=== PATIENT | female | born 1965 | race Caucasian/White ===

== ENCOUNTER 2016-06-18 19:31 | Emergency (ER) | payer SELFPAY ==
[~2016-06-18] VITALS: Ht 162.5 cm; Wt 95.3 kg
[~2016-06-18 19:31] MED LIST: IBUPROFEN400 MG PO; MOTRIN; MOTRIN800 MG PO; NKHM; PREDNICOT20 MG PO; VIBRAMYCIN100 MG PO
[2016-06-18] MEDS ORDERED: '''ZYRTEC PO (19:37)
[2016-06-18] MEDS ORDERED: CYCLOBENZAPRINE10 MG PO (19:37)
[2016-06-18] MEDS ORDERED: COREG12.5 M1 PO (19:37)
[2016-06-18] MEDS ORDERED: IBU800 M1 PO (19:37)
[2016-06-18] MEDS ORDERED: OMEPRAZOLE40 MG PO (19:38)
[2016-06-18] MEDS ORDERED: HYDROXYZINE HCL25 M1 PO (19:38)
[2016-06-18] MEDS ORDERED: TRAMADOL HCL50 MG PO (19:38)
[2016-06-18 20:48] LABS: BILIRUBIN NEGATIVE (NEGATIVE); BLOOD 1+ (NEGATIVE); CLARITY CLEAR (CLEAR); COLOR YELLOW (YELLOW); GLUCOSE TRACE (NEGATIVE); KETONE 1+ (NEGATIVE); LEUKO ESTERASE NEGATIVE (NEGATIVE); NITRITE NEGATIVE (NEGATIVE); PH 6.5 (5.0-9.0); PROTEIN NEGATIVE (NEGATIVE)
[2016-06-18 20:57] LABS: ALKALINE PHOSPHATASE 120 U/L (45-117); BILIRUBIN, TOTAL 0.3 mg/dl (0.2-1.0); BUN 8 mg/dl (7-24); CARBON DIOXIDE 29 mmol/L (21-32); CHLORIDE 104 mmol/L (98-107); EST GLOM FILT AFRICAN AMERICAN > 60 ml/min; GLUCOSE 133 mg/dL (65-99); POTASSIUM 3.2 mmol/L (3.5-5.1); SGOT/AST 33 IU/L (3-35); SGPT/ALT 57 U/L (12-78); SODIUM 142 mmol/L (136-145); TOTAL PROTEIN 7.2 gm/dL (6.4-8.2)
[2016-06-18 21:18] LABS: BACTERIA TRACE; URINE REFLEX COMMENT YES (NO)
[2016-06-18] MEDS ORDERED: MEDROL DOSEPAK4 MG PO (21:37)
[2016-06-18] MEDS ORDERED: AUGMENTIN 875875 MG PO (21:37)
[2016-06-18] MEDS ORDERED: PROAIR HFA8.5 GM INH (21:37)
== END 2016-06-18 21:56 | disposition home or self-care (01) ==
LOC: ED 19:31
PROVIDERS: Nurse Practitioner Family
DX: J40 Bronchitis, not specified as acute or chronic (principal); H66.92 Otitis media, unspecified, left ear; F17.200 Nicotine dependence, unspecified, uncomplicated

== ENCOUNTER → 2016-11-26 | Outpatient (CLI) | payer MEDICAID ==
[~2016-11-26] MED LIST changes: +'''ZYRTEC PO; +AUGMENTIN 875875 MG PO; +COREG12.5 M1 PO; +CYCLOBENZAPRINE10 MG PO; +HYDROXYZINE HCL25 M1 PO; +IBU800 M1 PO; +MEDROL DOSEPAK4 MG PO; +OMEPRAZOLE40 MG PO; +PROAIR HFA8.5 GM INH; +TRAMADOL HCL50 MG PO
== END | disposition home or self-care (01) ==
LOC: ORTHO 01:49
DX: S83.011A Lateral subluxation of right patella, initial encounter (principal); M17.0 Bilateral primary osteoarthritis of knee; M21.161 Varus deformity, not elsewhere classified, right knee; M25.361 Other instability, right knee; X58.XXXA Exposure to other specified factors, initial encounter; Y93.89 Activity, other specified; Y92.89 Other specified places as the place of occurrence of the external cause; Y99.8 Other external cause status

== ENCOUNTER → 2016-12-28 | Outpatient (CLI) | payer OTHER | END | disposition home or self-care (01) | LOC: ORTHO 02:17 | DX: M16.11 Unilateral primary osteoarthritis, right hip (principal) ==

== ENCOUNTER → 2017-02-01 | Outpatient (CLI) | payer OTHER | END | disposition home or self-care (01) | LOC: CT 14:48 | DX: M17.12 Unilateral primary osteoarthritis, left knee (principal) ==

== ENCOUNTER 2017-02-11 12:01 | Inpatient (IN) | payer OTHER ==
[~2017-02-11] VITALS: Ht 162.5 cm; Wt 90.5 kg
[2017-02-11] VITALS (7 sets, daily range): BP systolic 130–199; BP diastolic 63–102
--- NOTE | ~2017-02-11 | CON ---
[place], [place] REPORT OF CONSULTATION NAME: KYAW PHELAN UNIT #: [id number] ROOM: 501 DOCTOR: ADIA WARD MD BIRTHDATE: [birth year] DOS: 02/12/2017 CARDIOLOGY CONSULTATION REASON FOR CONSULTATION: Chest pain. HISTORY OF PRESENT ILLNESS: The patient is a 51-year-old woman who has had a long history of chest pain. She states that she has had 3 stress tests in the past, most recent of which was in 2014 at the office of Dr. Padilla. She tells me that all the stress tests were normal. She does have risk factors of hypertension and cigarette abuse. She does have chronic bronchitis and sinusitis. She was in her normal state of health recently until the morning of 02/11/2017. She stated that at rest, she had a sharp pain in her chest, which lasted for a few minutes and then resolved. The pain became more severe, however, and after a while did not resolve by itself. She stated that it was a pressure-like pain in her mid sternum which radiated to her left chest and then was associated with tingling in her hands. She had some blurring in her vision. She states that nothing made the pain better and certain positions seemed to make it worse. She had never had pain like this before, so she went to the Emergency Room. In the Emergency Room, she was given nitroglycerin and this seemed to help her pain somewhat, although did not relieve it completely. Later coughing episodes seem to make the pain worse. Her electrocardiogram was normal and serial troponin levels have all been normal. PAST MEDICAL HISTORY: Includes: 1. Hypertension. 2. Osteoarthritis of the knee. The patient is planning on having a left knee replacement in the near future. 3. Multiple tree allergies. 4. History of section and arthroscopy of the knee. 5. The patient denies any history of myocardial infarction or stroke. She does not have diabetes. FAMILY HISTORY: The patient's father had atrial fibrillation and hypertension. He started developing heart problems in his 60s. Her mother is healthy. MEDICATIONS: Prior to admission included albuterol by inhaler 2 puffs q.i.d., Flonase 2 sprays in the nares daily, alprazolam 0.5 mg t.i.d. as needed, carvedilol 25 mg b.i.d., cyclobenzaprine 10 mg t.i.d., hydroxyzine 25 mg t.i.d., ibuprofen 800 mg t.i.d., loratadine 10 mg daily and omeprazole 40 mg daily. ALLERGIES: The patient has no known drug allergies. REVIEW OF SYSTEMS: The patient denies diplopia or loss of vision. She denies syncope, but has had some lightheadedness. She has had diaphoresis with her lightheadedness. She denies nausea or vomiting. She denies fevers, chills, sweats or recent weight change. She denies any focal weakness or visual changes. She denies any changes in her swallowing. She denies hemoptysis or hematemesis. She denies change in bowel or bladder habits and denies blood in her stools or urine. She has had some swelling in her left knee and leg, [place], [place] REPORT OF CONSULTATION NAME: KYAW PHELAN UNIT #: [id number] ROOM: [facility] DOCTOR: ADIA WARD MD BIRTHDATE: [birth year] although her left calf has not had any swelling recently. She does have pain in her left knee and hip. She denies any new skin rashes, although she does have a pustular rash on her legs, which appears to be healing. She denies any history of blood clots that are documented. She denies any heat or cold intolerance, any polydipsia or polyuria. The remainder of the review of systems is negative except as noted above. SOCIAL HISTORY: The patient is and lives with her . She does smoke about a pack of cigarettes a day. She has used cocaine, but not for many years. She does drink a 12-pack of beer daily. PHYSICAL EXAMINATION: GENERAL: The patient is a mildly overweight white female who is awake, alert and oriented. VITAL SIGNS: Pulse is 60 and regular, blood pressure is 144/99. She is afebrile. She weighs 90.5 kg and has a body mass index of 34.3. HEENT: Normocephalic and atraumatic. Extraocular muscles are intact. Sclerae are clear. Pupils are round and react to light. Oral mucosa is moist. Tongue is midline. NECK: Supple. She has no jugular distention. Carotids are full. I heard no bruits. She had no neck or supraclavicular masses and no thyromegaly. LUNGS: Respirations are unlabored. Her chest is clear to auscultation and percussion. She had no presacral edema or chest wall tenderness. HEART: Had a regular rhythm. She had a fourth heart sound, but no third heart sound or murmur. The PMI was not displaced. She had no precordial heave, lift or thrill. Her sternum was tender, but I could not reproduce her chest pain by palpation of her chest. ABDOMEN: Soft and normally active without masses, organomegaly or bruits. There was no rebound. EXTREMITIES: Showed no clubbing, cyanosis or edema. Her left knee was slightly swollen and warm. She had no palpable cords or Homans sign. LABORATORY DATA: I reviewed her electrocardiogram. It showed sinus rhythm and was normal tracing. Hemoglobin is 13.1, hematocrit 37.1. There are 5500 white cells and 240,000 platelets. Sodium is 142, potassium 3.5, chloride 104, CO2 of 28, BUN 12, creatinine 0.55. Her cholesterol was 227, LDL 137. Troponin levels have been normal x 3. IMPRESSIONS: 1. Atypical chest pain. The patient does have a significant cough and bronchitis and her pains do seem to be musculoskeletal in origin; however, she does have risk factors of high blood pressure, cigarette abuse and a family history, so further evaluation is indicated. She has had normal stress tests in the past, but it has been at least 2 years since her last one. 2. Hypertension, probably exacerbated by alcohol consumption and ibuprofen. 3. Hyperlipidemia. 4. Obesity. 5. Cigarette abuse. [place], [place] REPORT OF CONSULTATION NAME: KYAW PHELAN UNIT #: [id number] ROOM: [facility] DOCTOR: ADIA WARD MD BIRTHDATE: [birth year] PLAN: The patient will undergo a pharmacologic stress test today. An exercise test was not possible because of her arthritis in the knee. Further recommendations will depend upon the results of the stress test. I did speak to the patient about cigarette cessation, etc. I thank the hospitalist physicians for asking our advice regarding her care. ADIA WARD MD CM:CONSTR:REPORT OF CONSULTATION 3 02/12/17 0953 interface
[2017-02-11 12:58] LABS: BASO % 0.4 % (0.0-1.0); EOS % 0.4 % (1.0-4.0); HEMATOCRIT 37.6 % (37.0-47.0); HEMOGLOBIN 13.3 g/dl (12.0-16.0); LYMPH # 2.3 10*3/uL (1.3-4.4); LYMPH % 28.8 % (27.0-41.0); MEAN CELL VOLUME 95.7 fl (81.0-99.0); MEAN CORPUSCULAR HGB 33.8 pg (27.0-31.0); MEAN CORPUSCULAR HGB CONC 35.4 g/dl (33.0-37.0); MEAN PLATELET VOLUME 9.5 fl (9.6-12.3); MONO # 0.6 10*3/uL (0.1-1.0); MONO % 7.5 % (3.0-9.0); NEUT % 62.3 % (47.0-73.0); PLATELET COUNT AUTOMATED 286 10*3/uL (130-400); RED BLOOD COUNT 3.93 10*6/uL (4.10-5.10); RED CELL DISTRI WIDTH 11.8 % (0-14.5)
[2017-02-11 13:14] LABS: ALBUMIN 3.2 gm/dl (3.1-4.5); ALKALINE PHOSPHATASE 109 U/L (45-117); BUN 14 mg/dl (7-24); CHLORIDE 105 mmol/L (98-107); CREATININE 0.55 mg/dL (0.55-1.02); MAGNESIUM 1.9 mg/dL (1.5-2.1); POTASSIUM 3.4 mmol/L (3.5-5.1); SGOT/AST 22 IU/L (3-35); SGPT/ALT 30 U/L (12-78); SODIUM 139 mmol/L (136-145); TOTAL PROTEIN 7.4 gm/dL (6.4-8.2)
[2017-02-11 13:17] LABS: TROPONIN I < 0.015 ng/ml (<0.045)
[2017-02-11] MEDS ORDERED: CARVEDILOL25 MG PO (14:26)
[2017-02-11] MEDS ORDERED: XANAX0.5 MG PO (14:27)
[2017-02-11] MEDS ORDERED: FLONASE ALLERG9.9 ML NAS (14:27)
[2017-02-11] MEDS ORDERED: CLARITIN10 MG PO (14:29)
[2017-02-12] VITALS: BP 112/63
[2017-02-12 06:52] LABS: BASO % 0.5 % (0.0-1.0); EOS % 0.7 % (1.0-4.0); HEMATOCRIT 37.1 % (37.0-47.0); HEMOGLOBIN 13.1 g/dl (12.0-16.0); LYMPH # 2.1 10*3/uL (1.3-4.4); LYMPH % 38.2 % (27.0-41.0); MEAN CELL VOLUME 98.4 fl (81.0-99.0); MEAN CORPUSCULAR HGB 34.7 pg (27.0-31.0); MEAN CORPUSCULAR HGB CONC 35.3 g/dl (33.0-37.0); MEAN PLATELET VOLUME 9.8 fl (9.6-12.3); MONO # 0.5 10*3/uL (0.1-1.0); MONO % 8.2 % (3.0-9.0); NEUT # 2.9 10*3/uL (2.3-7.9); NEUT % 52.2 % (47.0-73.0); PLATELET COUNT AUTOMATED 240 10*3/uL (130-400); RED BLOOD COUNT 3.77 10*6/uL (4.10-5.10); RED CELL DISTRI WIDTH 12.1 % (0-14.5); WHITE BLOOD COUNT 5.5 10*3/uL (4.8-10.8)
[2017-02-12 07:19] LABS: BUN 12 mg/dl (7-24); CHLORIDE 104 mmol/L (98-107); CHOLESTEROL 227 mg/dL (<200); CREATININE 0.55 mg/dL (0.55-1.02); HDL CHOLESTEROL 68 mg/dl (40-60); LDL CHOLESTEROL 137 mg/dL (9-159); POTASSIUM 3.5 mmol/L (3.5-5.1); SODIUM 142 mmol/L (136-145); TRIGLYCERIDES 108 mg/dl (<150); VLDL CHOLESTEROL 22 mg/dL (6-40)
[2017-02-12 08:00] VITALS: BP 144/99
[2017-02-12 12:00] VITALS: BP 141/85
[2017-02-12] MEDS ORDERED: ZITHROMAX250 MG PO (13:46)
[2017-02-12] MEDS ORDERED: PREDNISONE50 MG PO (13:46)
[2017-02-12] MEDS ORDERED: BENZONATATE100 M1 PO (13:50)
== END 2017-02-12 14:57 | disposition home or self-care (01) | DRG 205 ==
LOC: ED 12:01 → EDHOLD 13:45 → 5E 13:45
PROVIDERS: Nurse Practitioner Family; Student in an Organized Health Care Education/Training Program; ADMIT Emergency Medicine
DX: M94.0 Chondrocostal junction syndrome [Tietze] (principal); J18.9 Pneumonia, unspecified organism; E44.1 Mild protein-calorie malnutrition; I16.1 Hypertensive emergency; E87.6 Hypokalemia; F17.210 Nicotine dependence, cigarettes, uncomplicated; I10 Essential (primary) hypertension; K21.9 Gastro-esophageal reflux disease without esophagitis; E78.5 Hyperlipidemia, unspecified; F41.9 Anxiety disorder, unspecified; F10.10 Alcohol abuse, uncomplicated; M17.9 Osteoarthritis of knee, unspecified; J42 Unspecified chronic bronchitis; E66.9 Obesity, unspecified; Z71.6 Tobacco abuse counseling; Z82.49 Family history of ischemic heart disease and other diseases of the circulatory system; Z79.899 Other long term (current) drug therapy

== ENCOUNTER → 2017-03-19 | Outpatient (CLI) | payer OTHER ==
[~2017-03-19] MED LIST changes: +BENZONATATE100 M1 PO; +CARVEDILOL25 MG PO; +CLARITIN10 MG PO; +FLONASE ALLERG9.9 ML NAS; +KENALOG 0.1%80 GM T; +PREDNISONE50 MG PO; +TAB-A-VITE1 EACH PO; +XANAX0.5 MG PO; +ZITHROMAX250 MG PO
[2017-03-19 09:40] LABS: BILIRUBIN NEGATIVE (NEGATIVE); BLOOD NEGATIVE (NEGATIVE); CLARITY SL CLOUDY (CLEAR); COLOR YELLOW (YELLOW); GLUCOSE NEGATIVE (NEGATIVE); KETONE NEGATIVE (NEGATIVE); LEUKO ESTERASE NEGATIVE (NEGATIVE); NITRITE NEGATIVE (NEGATIVE); PH 5.5 (5.0-9.0); UROBILINOGEN 0.2 E.U./dl (0.2-1.0)
[2017-03-19 09:50] LABS: BASO % 0.7 % (0.0-1.0); EOS # 0.1 10*3/uL (0.0-0.4); EOS % 2.2 % (1.0-4.0); HEMATOCRIT 40.9 % (37.0-47.0); HEMOGLOBIN 14.4 g/dl (12.0-16.0); LYMPH % 36.3 % (27.0-41.0); MEAN CELL VOLUME 98.8 fl (81.0-99.0); MEAN CORPUSCULAR HGB 34.8 pg (27.0-31.0); MEAN CORPUSCULAR HGB CONC 35.2 g/dl (33.0-37.0); MEAN PLATELET VOLUME 10.2 fl (9.6-12.3); MONO # 0.6 10*3/uL (0.1-1.0); MONO % 9.9 % (3.0-9.0); NEUT # 2.8 10*3/uL (2.3-7.9); NEUT % 50.5 % (47.0-73.0); PLATELET COUNT AUTOMATED 278 10*3/uL (130-400); RED BLOOD COUNT 4.14 10*6/uL (4.10-5.10); RED CELL DISTRI WIDTH 11.9 % (0-14.5); WHITE BLOOD COUNT 5.5 10*3/uL (4.8-10.8)
[2017-03-19 10:09] LABS: ALBUMIN 3.7 gm/dl (3.1-4.5); ALKALINE PHOSPHATASE 99 U/L (45-117); BUN 19 mg/dl (7-24); CHLORIDE 102 mmol/L (98-107); CREATININE 0.69 mg/dL (0.55-1.02); POTASSIUM 4.3 mmol/L (3.5-5.1); SGOT/AST 23 IU/L (3-35); SGPT/ALT 26 U/L (12-78); SODIUM 138 mmol/L (136-145); TOTAL PROTEIN 7.8 gm/dL (6.4-8.2)
[2017-03-19 10:45] LABS: BACTERIA TRACE; YEAST TRACE
== END | disposition home or self-care (01) ==
LOC: LAB 07:53
PROVIDERS: Orthopaedic Surgery
DX: Z01.818 Encounter for other preprocedural examination (principal); M17.12 Unilateral primary osteoarthritis, left knee; Z96.652 Presence of left artificial knee joint

== ENCOUNTER 2017-03-26 03:00 | Inpatient (IN) | payer OTHER ==
[2017-03-26] VITALS (9 sets, daily range): BP systolic 135–184; BP diastolic 82–98
[~2017-03-26] VITALS: Ht 162.6 cm; Wt 89.4 kg
--- NOTE | ~2017-03-26 | O ---
[place], [place] OPERATIVE NOTE [id number] #: [id number] ROOM: 403 DOCTOR: GABRIELE BURROWS DO BIRTHDATE: [birth year] DOS: 03/26/2017 PREOPERATIVE DIAGNOSIS: Left knee osteoarthritis. POSTOPERATIVE DIAGNOSIS: Left knee osteoarthritis. OPERATIVE PROCEDURE: Left knee total joint arthroplasty, cemented tricompartmental with custom made prosthesis. SURGEON: Gabriele Burrows DO. CUSTOMS COLLECTOR: Chung Meyer Manea. ANESTHESIA: FAUZIA Black. TYPE OF ANESTHESIA: Spinal augmented with General with LMA. INDICATIONS: The patient is a 51-year-old female with a history of pain and disability about the left knee, unrelieved with conservative care. The risks and benefits of the procedure were explained to the patient preoperatively. Preoperative labs and x-rays were obtained including preoperative medical clearance. CT scan was obtained preoperatively and the custom implants were fabricated by [employer]. PROCEDURE IN DETAIL: The patient was seen in the preoperative area and the left knee was marked with a marking pen. The patient was brought to the operative suite. A spinal anesthetic was performed by Anesthesia. The patient received clindamycin 900 mg IV piggyback. The patient was placed supine on the operative table. Tourniquet was applied to the left upper thigh. Left lower extremity was prepped and draped in the usual orthopedic fashion. The midline patellar incision was marked with a marking pen. The area was injected with Marcaine 0.25% with epinephrine. An incision was made sharply with a scalpel after the timeout was performed. Subcutaneous tissue was spread down to the level of the quadriceps mechanism. The spinal was noted to have some incomplete effect. A general anesthetic with LMA intubation was performed. The procedure continued with a medial parapatellar incision. The patella was everted and slid laterally. The anterior cruciate ligament as well as the anterior portion of the medial and lateral menisci were debrided sharply. No osteophytes were removed. Prepatellar fat pad was debrided as well. The F1 jig was placed over the distal femur with the stylus at the anterior cortex of the femur. The coring tool was utilized to create 2 holes in the distal femur and advanced to the level of subchondral bone. The alignment I jig-F2 was attached to the distal resection I jig-FC3. Two parallel drill holes were made at the anterior femur and a cross pin as well. The 2 drill holes were made distally and marked with a surgical marker. The F2 jig was removed and the oscillating saw was used to remove the distal portion of the femur. The pins were removed and the cut was evaluated and found to be flush. Two pins were placed in the previously marked hole to the distal femur. The F4 block was slid into place with minimal external rotation over these pins. The lorena wing was used to evaluate the anterior resection to prevent notching. Two additional pins were placed [place], [place] OPERATIVE NOTE NAME: KYAW PHELAN UNIT #: [id number] ROOM: [facility] [place] DOCTOR: GABRIELE BURROWS DO BIRTHDATE: [birth year] medially and laterally to stabilize the block. The anterior resection was made with an oscillating saw, followed by the posterior resection, followed by the anterior chamfer. The drill was then used to create the corresponding lug holes with an 8 mm drill bit. The pins were removed and the guide was removed. The chamfer I jig-F4 was placed in the previously drilled lug holes and gently impacted. The open chamfer cut was made with the oscillating saw, followed by the captured chamfer cut. The jigs were removed and the area was copiously irrigated with normal saline. The remainder of the medial and lateral meniscus tissue was debrided, any loose fragments of bone were removed including a posterior osteophyte, which was removed with curved osteotome from the medial posterior femoral condyle. Attention was then turned to the proximal tibia. The F1-5 degree I jig was placed over the proximal tibia after the boundaries of the projections had been cleared down to subchondral bone with a curette. The 5 degree T1 jig was then secured with pins. The alignment rodrigo was attached. When appropriate slope and positioning was obtained, an additional x-pin was placed and the tibial cut was made using an oscillating saw, followed by an osteotome to remove the articular surface of the tibia. Remaining soft tissue or bony debris was removed and the area was copiously irrigated with normal saline. The femoral trial and tibial trial put into place. The knee was taken through a range of motion from 0-120 and evaluated for stability at 0 and 30. Rotation was marked for the tibia. The patella was measured and found to best accommodate a 29 x 6 mm patella component. Using a freehand technique, the oscillating saw was used to remove the articular surface from the patella, followed by removal of any remaining osteophytes. The 3 peg holes were drilled through the guide and the trial was put into place. The knee was again taken through a range of motion and evaluated for patellar tracking, which was excellent. All trials were removed. The area was copiously irrigated with normal saline to remove any more osteochondral fragments or soft tissue debris. The methyl methacrylate was mixed. The tibial surface had been prepared with the reamer and the keel punch. The tibial prosthetic tray was covered with methyl methacrylate and impacted into place. Any excess cement was cleared using a [place] elevator. The femoral prosthetic component was then covered with a thin layer of methyl methacrylate, impacted into place. Excess cement was cleared with the [place] elevator. The trial 6 mm tibial insert was placed, followed by the medial trial insert. The knee was put into full extension. The 29 mm polyethylene patellar prosthesis was cemented into place. Excess cement was cleared. When the cement had hardened, the trial polyethylene components were removed and replaced with the prosthetic poly components. The lateral followed by the medial was placed and they were impacted for stability. This was evaluated and noted to be adequate. The knee was taken through a final range of motion, 0-120 with stresses and varus and valgus at 30 and at 0. There was found to be excellent stability and range of motion as well as patellar tracking. Final irrigation was performed. The closure was initiated with 0 Vicryl for the quadriceps mechanism, followed by 2-0 Vicryl and skin maegan. This noted that the posterior capsule had been [place], [place] OPERATIVE NOTE NAME: KYAW PHELAN UNIT #: [id number] ROOM: [facility] [place] DOCTOR: GABRIELE BURROWS DO BIRTHDATE: [birth year] injected with Marcaine 0.25% with epinephrine. The dressing was placed using Xeroform, 4 x 4's, ABDs, cast padding and an Francisco bandage from mid metatarsals to the groin. The anesthetic was reversed. The patient was extubated and taken to the recovery room in satisfactory condition. SPONGE AND NEEDLE COUNT: Correct. ESTIMATED BLOOD LOSS: 100 mL. DRAINS: None. PACKING: None. SPECIMENS: Bone and soft tissue. FINDINGS: Tricompartmental osteoarthritis, left knee. IMPLANTS: Confor[employer] total knee custom I total femoral and tibial implant with the I total 6 mm polyethylene cruciate retaining spacer and a 29 mm patellar component. GABRIELE BURROWS DO CM:OPRECORD:OPERATIVE NOTE [id number] GABRIELE BURROWS DO 04/05/17 0729 interface
--- NOTE | 2017-03-26 15:30 | NUR ---
Time: 1529 A 51 year old FEMALE admitted to under services of DR. SHEEHAN Pt. arrived via bed from [facility] WAS PRESENT ON BED ON ARRIVAL. PINK CATH SECURE DRAINING CLEAR STRAW URINE . SCD SLEEVE ON RIGHT LEG. DRESSING SECURE TO LEFT KNEE. BLANKET ROLL PLACED UNDER ANKLE. iCE PRESENT TO LEFT KNEE. Chief complaint: S/P LEFT KNEE ARTHOPLASTY. RONAK MITCHELL
--- NOTE | 2017-03-26 15:30 | NUR ---
PHYSICAL THERAPY PAtient not appropriate for PT at this time, just returning form surgery. Will attempt at a later date. Thank you for this referral. Sonja Webb,PT
--- NOTE | 2017-03-26 15:32 | NUR ---
PHYSICAL THERAPY PAtient just admiited to room and nurse completing admission. Thank you for this referral. Sonja Webb,PT
[2017-03-26] MEDS ORDERED: ULTRAM50 MG PO (15:39)
--- NOTE | 2017-03-26 15:47 | NUR ---
MED REC UPDATED WITH PT LIST SHE BROUGHT IN.
[2017-03-26 16:04] LABS: BASO % 0.3 % (0.0-1.0); EOS % 0.5 % (1.0-4.0); HEMATOCRIT 38.8 % (37.0-47.0); HEMOGLOBIN 13.5 g/dl (12.0-16.0); LYMPH # 1.7 10*3/uL (1.3-4.4); LYMPH % 22.2 % (27.0-41.0); MEAN CELL VOLUME 97.5 fl (81.0-99.0); MEAN CORPUSCULAR HGB 33.9 pg (27.0-31.0); MEAN CORPUSCULAR HGB CONC 34.8 g/dl (33.0-37.0); MEAN PLATELET VOLUME 9.8 fl (9.6-12.3); MONO # 0.5 10*3/uL (0.1-1.0); MONO % 6.2 % (3.0-9.0); NEUT # 5.4 10*3/uL (2.3-7.9); NEUT % 70.4 % (47.0-73.0); PLATELET COUNT AUTOMATED 218 10*3/uL (130-400); RED BLOOD COUNT 3.98 10*6/uL (4.10-5.10); RED CELL DISTRI WIDTH 11.9 % (0-14.5); WHITE BLOOD COUNT 7.7 10*3/uL (4.8-10.8)
[2017-03-26 16:19] LABS: ALBUMIN 2.9 gm/dl (3.1-4.5); ALKALINE PHOSPHATASE 98 U/L (45-117); BUN 12 mg/dl (7-24); CHLORIDE 108 mmol/L (98-107); CREATININE 0.62 mg/dL (0.55-1.02); MAGNESIUM 1.9 mg/dL (1.5-2.1); PHOSPHOROUS 4.1 mg/dL (2.5-4.9); POTASSIUM 4.2 mmol/L (3.5-5.1); SGOT/AST 18 IU/L (3-35); SGPT/ALT 25 U/L (12-78); SODIUM 140 mmol/L (136-145); TOTAL PROTEIN 6.9 gm/dL (6.4-8.2)
--- NOTE | 2017-03-26 17:15 | NUR ---
Medicated for pain and anxiety
--- NOTE | 2017-03-26 17:25 | NUR ---
CPM on. Pt, states feels better w/ therapy on.
--- NOTE | 2017-03-26 18:47 | NUR ---
States pain is at 5-6 and this is a normal range for her. Meds helped , requests CPM remain on at this time .
--- NOTE | 2017-03-26 19:41 | NUR ---
24 HR chart check completed.
--- NOTE | 2017-03-26 21:42 | NUR ---
PRN PERCOCET GIVEN FOR SURGICAL KNEE PAIN RATED 7/10. PRN VISTARIL GIVEN FOR MILD ANXIETY. WILL MONITOR.
--- NOTE | 2017-03-26 23:20 | NUR ---
SCHEDULED TORADOL GIVEN FOR PAIN. PATIENT RATES PAIN 8/10. ICE BAGS WERE ALSO APPLIED. WILL CONTINUE TO MONITOR AND MANAGE SURGICAL PAIN.
[2017-03-27] VITALS: BP 107/58
--- NOTE | 2017-03-27 02:55 | NUR ---
PATIENT WAS AWAKENED FROM SLEEP DUE TO SURGICAL PAIN RATED 8/10. PRN DILAUDID WAS GIVEN. WILL MONITOR.
--- NOTE | 2017-03-27 03:35 | NUR ---
PRN DILAUDID EFFECTIVE. PATIENT ASLEEP WITH RESPIRATIONS >12.
--- NOTE | 2017-03-27 05:33 | NUR ---
SCHEDULED TORADOL GIVEN FOR SURGICAL PAIN. WILL MONITOR.
--- NOTE | 2017-03-27 05:48 | NUR ---
PRN PERCOCET GIVEN FOR SURGICAL PAIN RATED AT 6/10 AND "CREEPING UP THERE" PATIENT STATES. WILL MONITOR.
[2017-03-27 06:09] LABS: BASO % 0.5 % (0.0-1.0); EOS # 0.1 10*3/uL (0.0-0.4); EOS % 1.8 % (1.0-4.0); LYMPH # 1.7 10*3/uL (1.3-4.4); LYMPH % 28.7 % (27.0-41.0); MEAN CORPUSCULAR HGB 33.5 pg (27.0-31.0); MEAN CORPUSCULAR HGB CONC 33.3 g/dl (33.0-37.0); MEAN PLATELET VOLUME 10.1 fl (9.6-12.3); MONO # 0.7 10*3/uL (0.1-1.0); NEUT # 3.4 10*3/uL (2.3-7.9); NEUT % 56.7 % (47.0-73.0); PLATELET COUNT AUTOMATED 191 10*3/uL (130-400); RED BLOOD COUNT 3.28 10*6/uL (4.10-5.10); WHITE BLOOD COUNT 6.1 10*3/uL (4.8-10.8)
[2017-03-27 06:13] LABS: MEAN CELL VOLUME 100.6 fl (81.0-99.0)
--- NOTE | 2017-03-27 06:15 | NUR ---
TORADOL AND PERCOCET ARE HELPING PATIENT RATES PAIN 5/10. STATES "THE DILAUDID REALLY HELPS." DILAUDID WAS GIVEN AT 0631.
[2017-03-27 06:37] LABS: BUN 12 mg/dl (7-24); CHLORIDE 104 mmol/L (98-107); CREATININE 0.61 mg/dL (0.55-1.02); POTASSIUM 4.4 mmol/L (3.5-5.1); SODIUM 140 mmol/L (136-145)
--- NOTE | 2017-03-27 07:00 | NUR ---
DILAUDID WAS EFFECTIVE. PATIENT IS RELAXED, COMFORTABLE AND RATES PAIN 3/10. ALSO OFFERED ICE PACKS.
[2017-03-27 08:00] VITALS: BP 106/60
--- NOTE | 2017-03-27 08:00 | NUR ---
News Librarian in to talk to patient. Patient states lives at HOME with HER . There are 8 steps in the home. Physician: DR DOUGLAS Pharmacy: [facility] [place] Home health services: NONE Patient's level of ADLs: MODERATE ASSIST Patient has working utilities: YES DME: NONE Follow-up physician's appointment after d/c: WILL BE MADE PRIOR TODC Does patient want to access PORTAL?: Discharge plan . BABITA LEVY REQUESTS SNF STAY AT [facility]. SECOND CHOICE IS [facility]. [facility] EXPANDER WILL MAKE REFERRAL. WILL NEED INSURANCE PRECERT.
--- NOTE | 2017-03-27 09:37 | NUR ---
PHYSICAL THERAPY PAtient evaliuated on 4, full evaluation to follow. Continue with PT as per plan of care with fall, min (A) and acute left TKA WBAT precautions. Will require SNF for impaired mobility in order to return to home at (i) PLOF. PAtient is moderate complexity via chart review, tests and evaluation: 33580. Thank you for this referral. Sonja Webb,PT
--- NOTE | 2017-03-27 09:50 | NUR ---
Occupational Therapy evaluation completed this date on 4 with full eval to follow. Precautions include WBAT LLE L TKA, fall prec, new ww use, mayen, IV UE, moderate complexity level 52554. Recommend OT per POC and SNF upon d/c to enable safe return home at [facility]. Thank you for this referral. Joselyn Darby OTR/l
--- NOTE | 2017-03-27 09:53 | NUR ---
PRN PERCOCET AND DILAUDID GIVEN PER PT REQUEST WITH REPORTRD 12/17 LEFT KNEE PAIN.
--- NOTE | 2017-03-27 10:00 | NUR ---
CPM APPLIED, DEGREES INCREASED TO 40 .
--- NOTE | 2017-03-27 10:33 | NUR ---
Patient requested referral be made to [facility], contacted katiana and faxed referral. Will require precert, will also need snf order
--- NOTE | 2017-03-27 10:53 | NUR ---
PRN PAIN MEDICATIONS MINIMALLY EFFECTIVE, PT RATES PAIN 4/10 TO LEFT KNEE.
--- NOTE | 2017-03-27 11:34 | NUR ---
PHYSICAL THERAPY Mrs Tobin seen for her therapy session and wanting back into bed, Pt was up in her bedside chair and just wanting to lay back down. Pt is left TKA and is WBAT precautions, Pt has IV and a cath. Transfer sit/stand MIN A X 1, standing balance with wheeled walker CG X 1, no LOB and said that it feels good to just stand. Gait total 19' X 1, with wheeled walker and MOD A X 1, with cueing for gait, walker and WBAT and did well, with one more standing balance then back supine in bed Pt with call light, treatment time 16 min. MICHAEL ECKERT CAR PACKER.
[2017-03-27 12:00] VITALS: BP 128/68
--- NOTE | 2017-03-27 12:10 | NUR ---
PT TAKEN OFF CPM MACHINE, TOLERATED 40 DEGREES WELL.
--- NOTE | 2017-03-27 14:10 | NUR ---
PRN PAIN MED MINIMALLY EFFECTIVE, PT RATES LEFT KNEE PAIN 6/10.
--- NOTE | 2017-03-27 14:20 | NUR ---
PHYSICAL THERAPY Pnt was seen for 23' of 1:1 PT this pm. Pain 7/10 on arrival. Instructed pnt in bed exercises including glut sets, quad sets, ankle pumps, and heel slides with assist x 10 reps each. She was able to transfer to EOB with contact guard assist. Sit to/from stand required min assist x 1 to w/w. She ambulated a distance of 40' with device WBAT L LE. Educated her on unlocking L knee and heel strike for a more functional pattern. Up in chair on depature with call light within reach. Pain 7/10. Cassie Llamas, PT
--- NOTE | 2017-03-27 14:34 | NUR ---
[facility] stated they are unable to accept this patient due to insurance out of network. Patients second choice was [facility], contacted Darlene Tompkins and faxed referral, waiting on acceptance.
--- NOTE | 2017-03-27 15:34 | NUR ---
prn pain med given for a 7/10 left knee pain.
--- NOTE | 2017-03-27 15:46 | NUR ---
cpm machine on, pt tolerating well.
[2017-03-27 16:00] VITALS: BP 137/75
--- NOTE | 2017-03-27 16:34 | NUR ---
PRN PAIN MED EFFECTIVE, PT REPORTS 4/10 LEFT KNEE PAIN.
--- NOTE | 2017-03-27 18:18 | NUR ---
Pt medicated per request/order. Verbalized relief. Respirations easy and regular. No acute distress noted at this time. Watching Tv eating dinner.
[2017-03-27 20:00] VITALS: BP 128/77
--- NOTE | 2017-03-27 20:49 | NUR ---
PRN DILAUDID GIVEN FOR PT COMPLAINTS OF LEFT KNEE PAIN RATING IT AN 8 OUT OF 10. CALL LIGHT WITHIN REACH, WILL MONITOR
--- NOTE | 2017-03-27 22:26 | NUR ---
PRN PERCOCET GIVEN FOR PT COMPLAINTS OF 6/10 PAIN IN THE LEFT KNEE. PATIENT ALSO PLACED ON CPM MACHINE AT THIS TIME
[2017-03-28] VITALS: BP 156/79
--- NOTE | 2017-03-28 00:38 | NUR ---
PATIENT TAKEN OFF CPM MACHINE AT THIS TIME AFTER 2 HOURS. TOLERATED WELL. SCHEDULED TORADOL GIVEN. PATIENT REQUESTING ICE PACKS. WILL MONITOR
--- NOTE | 2017-03-28 02:04 | NUR ---
PRN DILAUDID GIVEN FOR PT COMPLAINTS OF LEFT KNEE PAIN RATING IT AN 8/10. CALL LIGHT WITHN REACH WILL MONITOR
--- NOTE | 2017-03-28 02:45 | NUR ---
PRN DILAUDID SOMEWHAT EFFECTIVE PER PT, PAIN /
--- NOTE | 2017-03-28 03:12 | NUR ---
24 HR chart check completed.
--- NOTE | 2017-03-28 04:07 | NUR ---
PRN PERCOCET GIVEN FOR PT COMPLAINTS OF LEFT KNEE PAIN RATING IT A 6/10. CALL LIGHT WITHIN REACH, WILL MONITOR
[2017-03-28 06:15] LABS: BASO % 0.3 % (0.0-1.0); EOS # 0.1 10*3/uL (0.0-0.4); HEMOGLOBIN 9.5 g/dl (12.0-16.0); LYMPH # 1.6 10*3/uL (1.3-4.4); LYMPH % 25.5 % (27.0-41.0); MEAN CELL VOLUME 98.9 fl (81.0-99.0); MEAN CORPUSCULAR HGB 33.6 pg (27.0-31.0); MEAN CORPUSCULAR HGB CONC 33.9 g/dl (33.0-37.0); MEAN PLATELET VOLUME 10.3 fl (9.6-12.3); MONO # 0.7 10*3/uL (0.1-1.0); MONO % 12.1 % (3.0-9.0); NEUT # 3.7 10*3/uL (2.3-7.9); NEUT % 59.8 % (47.0-73.0); PLATELET COUNT AUTOMATED 170 10*3/uL (130-400); RED BLOOD COUNT 2.83 10*6/uL (4.10-5.10); WHITE BLOOD COUNT 6.1 10*3/uL (4.8-10.8)
--- NOTE | 2017-03-28 06:35 | NUR ---
PINK REMOVED AND PATIENT UP TO CHAIR AT THIS TIME
[2017-03-28 06:51] LABS: BUN 10 mg/dl (7-24); CHLORIDE 107 mmol/L (98-107); POTASSIUM 3.9 mmol/L (3.5-5.1); SODIUM 139 mmol/L (136-145)
[2017-03-28 08:00] VITALS: BP 138/71
--- NOTE | 2017-03-28 09:10 | NUR ---
ADMINISTERED IV DILAUDID PER PT REQUEST FOR LEFT KNEE PAIN RATED 8/10. WILL MONITOR FOR EFFECTIVENESS.
--- NOTE | 2017-03-28 09:35 | NUR ---
PHYSICAL THERAPY Pt seen this AM 1:1 for her therapy session. Pt was up in her bedside chair and just finished her breakfast. Start with ROM to left LE, knee in sitting knee fleaion/extension to pain tolerance with improvement in rom and pain, act LAQ, and ankle pumps. Followed by sit/stand MIN A X 1, gait with wheeled walker and MOD BUILDING CONSTRUCTION IRONWORKER X 1, verbal cueing for gait, walker and WBAT with pain improving. Pt back up in her bedside chair another rom left knee, Pt with call light, phone. MICHAEL ECKERT DIE MAKER TRIM.
--- NOTE | 2017-03-28 10:00 | NUR ---
Patient resting quietly with no c/o discomfort. Respirations easy and regular. Vital signs stable. No overt distress. SERENE ROSA
--- NOTE | 2017-03-28 11:40 | NUR ---
ADMINISTERED PO PERCOCET PER PT RQUEST FOR C/O LEFT KNEE PAIN RATED 7/10. WILL MONITOR FOR EFFECTIVENESS
[2017-03-28 12:00] VITALS: BP 154/76
--- NOTE | 2017-03-28 12:05 | NUR ---
Nutritional Support Services Note: Pt is eating well 100% of meals. Regular diet. Discussed with pt need for increased protein to promote healing. Encouraged increased fluids secondary to constipation. No questions at this time. Will follow as needed. Janae Quintana
--- NOTE | 2017-03-28 12:26 | NUR ---
Rehab suites does not have any available beds for this patient at this time. In to discuss with patient, she asked referral be made to [facility]. Contacted and faxed referral, requested them to start precert as soon as possible, patient is ready to be discharged. Waiting on acceptance.
--- NOTE | 2017-03-28 12:30 | NUR ---
DR WELLINGTON IN TO SEE PATIENT. REMOVED DRESSING. UNA INTACT WITH NO DRAINAGE NOTED. PER DR WELLINGTON NEW DRESSING CAN GET WET AND NEEDS CHANGED IN 7 DAYS. IV FLUIDS DISCONTINUED.
--- NOTE | 2017-03-28 12:41 | NUR ---
PHYSICAL THERAPY Pt was seen this PM 1:1 for her therapy session and improving, but slow. Transfer supine/sit MOD AX 1, sitting balance side of bed CG to supervision X 1, working left knee flexion over the bed, inro stretching into extension, act LAQ's but working on this. Sit/stand and standing balance with wheeled walker MIN A X 1, Pt has IV Pole. Gait 60' X 2, W/W and MIN/MOD NET WEB DEVELOPER X 1, verbal cueing for gait, walker turn safety no LOB. Pt back up at bedside for rom and act LAQ's, then supine for quad sets, glut sets, ankle pumps. Pt is improving but is weak, Pt with call light, phone. MICHAEL ECKERT JEWELRY CONSULTANT.
--- NOTE | 2017-03-28 12:46 | NUR ---
PER PT MEDICATION NOT EFFECTIVE. ADMINISTERED IV DILAUDID PER PT REQUEST FOR LEFT KNEE PAIN RATED 7/10 AND ANXIETY. WILL MONITOR FOR EFFECTIVENESS.
--- NOTE | 2017-03-28 13:37 | NUR ---
patient has been accepted to [facility], they are starting precert today. Waiting on auth.
[2017-03-28 16:00] VITALS: BP 135/71
[2017-03-28 20:00] VITALS: BP 137/83
--- NOTE | 2017-03-28 20:00 | NUR ---
CPM MACHINE REMOVED AT THIS TIME AFTER 2 HOURS. PATIENT TOLERATED WELL.
--- NOTE | 2017-03-28 21:04 | NUR ---
PRN PERCOCET GIVEN FOR PT COMPLAINTS OF 6/10 LEFT KNEE PAIN. CALL LIGHT WITHIN REACH, WILL MONITOR
--- NOTE | 2017-03-28 21:22 | NUR ---
PRN XANAX GIVEN FOR PT COMPLAINTS OF ANXIETY. CALL LIGHT WITHIN REACH, WILL MONITOR
--- NOTE | 2017-03-28 22:15 | NUR ---
PRN MEDICATION APPEARS EFFECTIVE, PT SLEEPING
[2017-03-29] VITALS: BP 140/77
--- NOTE | 2017-03-29 01:35 | NUR ---
PRN DILAUDID GIVEN FOR PT COMPLAINTS OF 9/10 PAIN IN LEFT KNEE. CALL LIGHT WITHIN REACH, WILL MONITOR
--- NOTE | 2017-03-29 01:55 | NUR ---
IV SITE LEAKING. DISCONTINUED AND RESTARTED 22 GAUGE IN LEFT HAND
--- NOTE | 2017-03-29 02:15 | NUR ---
PRN MEDICATION APPEARS EFFECTIVE, PT SLEEPING
--- NOTE | 2017-03-29 03:55 | NUR ---
PRN PERCOCET GIVEN FOR PT COMPLAINTS OF LEFT KNEE PAIN RATING IT 6/10. CALL LIGHT WITHIN REACH, WILL MONITOR
--- NOTE | 2017-03-29 05:10 | NUR ---
PATIENT PLACED ON CPM MACHINE AT THIS TIME WITH A FLEXION OF 60. PATIENT TOLERATED WITH A FLEXION OF 60 FOR ABOUT 10 MINUTES AND REQUESTED IT BE TURNED BACK DOWN TO 50. CALL LIGHT WITHIN REACH, WILL MONITOR
[2017-03-29 06:13] LABS: BASO % 0.4 % (0.0-1.0); EOS # 0.1 10*3/uL (0.0-0.4); EOS % 2.8 % (1.0-4.0); HEMATOCRIT 29.8 % (37.0-47.0); HEMOGLOBIN 10.1 g/dl (12.0-16.0); LYMPH # 1.5 10*3/uL (1.3-4.4); LYMPH % 29.9 % (27.0-41.0); MEAN CELL VOLUME 99.7 fl (81.0-99.0); MEAN CORPUSCULAR HGB 33.8 pg (27.0-31.0); MEAN CORPUSCULAR HGB CONC 33.9 g/dl (33.0-37.0); MEAN PLATELET VOLUME 10.1 fl (9.6-12.3); MONO # 0.6 10*3/uL (0.1-1.0); MONO % 12.7 % (3.0-9.0); NEUT # 2.7 10*3/uL (2.3-7.9); NEUT % 53.8 % (47.0-73.0); PLATELET COUNT AUTOMATED 185 10*3/uL (130-400); RED BLOOD COUNT 2.99 10*6/uL (4.10-5.10); WHITE BLOOD COUNT 5.1 10*3/uL (4.8-10.8)
--- NOTE | 2017-03-29 06:27 | NUR ---
PATIENT CONTINUES TO TOLERATE CPM MACHINE AT 50 FLEXION. CALL LIGHT WITHIN REACH
[2017-03-29 06:38] LABS: BUN 10 mg/dl (7-24); CHLORIDE 106 mmol/L (98-107); CREATININE 0.49 mg/dL (0.55-1.02); POTASSIUM 4.2 mmol/L (3.5-5.1); SODIUM 141 mmol/L (136-145)
--- NOTE | 2017-03-29 07:40 | NUR ---
PT AWAKE. SITTING IN CHAIR. PT COMPLAINTS OF LEFT KNEE PAIN RATED 8/10. BP ELEVATED LIKELY R/T TO PAIN. STUDENT WITH PATIENT TODAY. STUDENT ALONG WITH INSTURCTOR ADMINISTERED PO PERCOCET AND COREG PER EMAR. WILL MONITOR FOR EFFECTIVENESS.
[2017-03-29 08:00] VITALS: BP 158/90
[2017-03-29 08:20] VITALS: BP 144/82
--- NOTE | 2017-03-29 08:56 | NUR ---
PHYSICAL THERAPY Pt was seen this AM 1:1 for her therapy. Start with rom, slight stretching, knee flexion/extension and Pt ask if i could come back she going to ask for her pain meds. I stopped back 45 min later and another rom, act, act assist Ex to left LE knee and doing a little better after her pain meds. Sit/stand and up on wheeled walker standing balance MOD A X 1. Then gait total 80' X 2, one sitting rest, with MIN/MOD A X 1, with verbal cueing for heel strike toe off, and safety on her turns. Pt back up in her bedside chair, call light, phone. MICHAEL ECKERT BOILING TUB OPERATOR.
--- NOTE | 2017-03-29 11:02 | NUR ---
PATIENT SEEN FOR 30 MINUTES 1:1 OT THIS DATE. PATIENT SEATED IN RECLINER UPON ARRIVAL. PATIENT IDENTIFIED BY NAME AND DATE OF THIS DATE. PATIENT COMPLETED FUNCTIONAL XFERS THAT INCLUDED SIT TO STAND RECLINER, TOILET WITH SUPERVISION AND FUCNTIONAL AMBULATION USE FWW SBA. PATIENT COMPLETED STAND TOLERANCE ACTIVITY 5 MINUTES THIS DATE USE FWW SUPPORT SBA WITH MIN VERBAL CUES INCREASE STANCE FOR SAFETY. PATIENT COMPLETED TOILETING SUPERVISION. COMPLETED UB DRESSING MANLEY AND LB DRESSING MIN A SULLY PANTS, SOCKS, AND MOD A TO SULLY LEFT SHOE. PATIENT EDUCATED PROPER FITTED SHOES FOR SAFETY AND FALL PREVENTION. EDUCATED PATIENT BENEFITS AE FOR INCREASE INDEPENDENCE LB DRESSING AND EDUCATED SAFETY KNEE PREC WHILE DONNING SHOE. JAYDE MAST/Paula
[2017-03-29 12:00] VITALS: BP 144/80
--- NOTE | 2017-03-29 12:25 | NUR ---
ADMINISTERED PO PERCOCET PER PT REQUEST FOR LEFT KNEE PAIN RATED 8/10. WILL MONITOR FOR EFFECTIVENESS.
--- NOTE | 2017-03-29 12:36 | NUR ---
Still waiting on precert.
--- NOTE | 2017-03-29 12:58 | NUR ---
PHYSICAL THERAPY Pt was seen this PM 1:1 for her therapy. Pt supine in bed, present. Transfer supine/sit MIN A X 1, sitting balance CG X 1, X 5 min, with act LAQ's left weak but working on this. Sit/stand and up on wheeled walker standing balance MIN/MOD A X 1. Followed by gait 90' X 2, with cueing for gait, walker, turn safety, with heel strike and toe off and is improving with improvement in her pain. Pt up in her bedside chair call light phone working act left knee flexion/extension. MICHAEL ECKERT OPTIMIZATION SPECIALIST.
--- NOTE | 2017-03-29 13:31 | NUR ---
MEDICATION EFFECTIVE. PATIENT RESTING COMFORTABLY WITH NO COMPLAINTS OF PAIN AT THIS TIME.
--- NOTE | 2017-03-29 14:10 | NUR ---
PHYSICAL THERAPY CO-SIGN I approve of the Phyical Therapy notes written above. JOSE RIOS PT
--- NOTE | 2017-03-29 15:01 | NUR ---
Waiting for precert for Scar Lloyd. Notified [facility] if precert is obtained after 3:30 or over the weekend to please notify 4th floor nursing.
[2017-03-29 16:00] VITALS: BP 162/98
[2017-03-29 20:00] VITALS: BP 156/86
--- NOTE | 2017-03-29 20:19 | NUR ---
PRN PERCOCET GIVEN FOR PT COMPLAINTS OF LEFT KNEE PAIN RATING IT 6/10. CALL LIGHT WITHN REACH, WILL MONITOR
--- NOTE | 2017-03-29 21:00 | NUR ---
PRN PERCOCET SOMEWHAT EFFECTIVE, PER PT
--- NOTE | 2017-03-29 21:30 | NUR ---
DR. CAMPOS CALLED ATT HIS TIME FOR PT REQUESTING MARGIE, STATES SHE HAS BURSITIS IN HER RIGHT HIP AND SINCE SHE HAD KNEE SURGERY SHE ISNT ABLE TO ADJUST HER BODY TO RELIEVE THE PAIN. DR. CAMPOS TO PUT IN ORDER FOR MARGIE
--- NOTE | 2017-03-29 23:55 | NUR ---
PT TAKEN OFF OF CPM MACHINE AT THIS TIME AFTER 2 HOURS
[2017-03-30] VITALS: BP 129/76
--- NOTE | 2017-03-30 00:33 | NUR ---
PT C/O LEFT KNEE PAIN RATING 7/10, PRN PERCOCET GIVING PER ORDER
--- NOTE | 2017-03-30 05:12 | NUR ---
PRN PERCOCET GIVEN FOR PT COMPLAINTS OF LEFT KNEE PAIN RATING IT A 5/10. CALL LIGHT WITHIN REACH, WILL MONITOR
[2017-03-30 07:13] LABS: BASO % 0.6 % (0.0-1.0); EOS # 0.1 10*3/uL (0.0-0.4); EOS % 2.3 % (1.0-4.0); HEMATOCRIT 28.8 % (37.0-47.0); HEMOGLOBIN 9.9 g/dl (12.0-16.0); LYMPH # 1.7 10*3/uL (1.3-4.4); LYMPH % 31.6 % (27.0-41.0); MEAN CELL VOLUME 99.3 fl (81.0-99.0); MEAN CORPUSCULAR HGB 34.1 pg (27.0-31.0); MEAN CORPUSCULAR HGB CONC 34.4 g/dl (33.0-37.0); MONO # 0.6 10*3/uL (0.1-1.0); MONO % 11.4 % (3.0-9.0); NEUT # 2.8 10*3/uL (2.3-7.9); NEUT % 53.7 % (47.0-73.0); PLATELET COUNT AUTOMATED 210 10*3/uL (130-400); WHITE BLOOD COUNT 5.3 10*3/uL (4.8-10.8)
[2017-03-30 07:52] LABS: BUN 13 mg/dl (7-24); CHLORIDE 105 mmol/L (98-107); POTASSIUM 3.7 mmol/L (3.5-5.1); SODIUM 141 mmol/L (136-145)
[2017-03-30 08:00] VITALS: BP 150/98
--- NOTE | 2017-03-30 10:08 | NUR ---
Pt was seen this AM 1:1 for her therapy. Pt supine in bed. Supine/Sit CGA x 1 with verbal cues for correct hand/foot placement. Seated exercise L knee flex/ext, quad sets, AROM heel slides, and LAQ's. Gait 100' x 2 requiring CGA and verbal cues for correct walker sequence and safety. Pt returned to bed with call light.
[2017-03-30 12:00] VITALS: BP 136/72
[2017-03-30 16:00] VITALS: BP 155/85
[2017-03-30 20:00] VITALS: BP 159/93
--- NOTE | 2017-03-30 22:00 | NUR ---
APPLIED CPM TO LLE PER MD ORDER
[2017-03-31] VITALS: BP 139/73
--- NOTE | 2017-03-31 | NUR ---
REMOVED CPM DEVICE AFTER 2HR PER MD ORDER.
--- NOTE | 2017-03-31 03:04 | NUR ---
MEDICATED PT PER REQUEST WITH PERCOCET FOR 8/10 LEFT KNEE PAIN WITH GOOD EFFECT.
--- NOTE | 2017-03-31 04:00 | NUR ---
Patient sleeping. Respirations easy and regular. Vital signs stable. No overt distress. ELVIRA SILVA
[2017-03-31 08:00] VITALS: BP 150/76
--- NOTE | 2017-03-31 08:00 | NUR ---
FLEXARIL, PERCOCET GIVEN FOR C/C PAIN LT KNEE, RATES 7/10 ON PAIN SCALE. XANAX GIVEN FOR C/O ANXIETY. WILL MONITOR.
--- NOTE | 2017-03-31 09:15 | NUR ---
FLEXARIL, PERCOCET AND XANAX EFFECTIVE POER PT.
[2017-03-31 12:00] VITALS: BP 132/70
--- NOTE | 2017-03-31 12:26 | NUR ---
PHYSICAL THERAPY Pt was seen this AM 1:1 for her therapy. Pt sitting in chair. Transfer SIT/STAND CGA x 1 requiring verbal cues for correct transfer technique using LLE. Seated exercises: heel slides, quad sets, glute sets with education on proper form and follow through x 10 minutes followed by gait 100' x 2 CGA and education on walker sequence and weight shifting for proper gait sequence. Pt returned to chair with call light.
--- NOTE | 2017-03-31 12:27 | NUR ---
PERCOCET GIVENM FOR C/O LT KNEE PAIN, RATES 6/10 ON PAIN SCALE. WILL MONITOR.
--- NOTE | 2017-03-31 13:30 | NUR ---
PERCOCET EFFECTIVE PER PT
[2017-03-31 16:00] VITALS: BP 126/98
--- NOTE | 2017-03-31 16:40 | NUR ---
PERCOCOET GIVEN FOR C/O LT PAIN. RATES 7/10 ON PAIN SCALE. WILL MONITOR.
[2017-03-31 20:00] VITALS: BP 137/79
--- NOTE | 2017-03-31 20:50 | NUR ---
Pt placed on CPM at 70 degrees. medicated with pain medication. see aug. Will monitor
[2017-04-01] VITALS: BP 153/86
--- NOTE | 2017-04-01 00:50 | NUR ---
pt removed from CPM. pt tolerated well. call light in reach. will moniotr.
--- NOTE | 2017-04-01 03:00 | NUR ---
Pt requested and was medicated with percocet for c/o left knee pain. will monitor
--- NOTE | 2017-04-01 07:30 | NUR ---
ADMINISTERED PO PERCOCET PER PT REQUEST FOR LEFT KNEE PAIN RATED 6/10. WILL MONITOR FOR EFFECTIVENESS.
[2017-04-01 08:00] VITALS: BP 150/81
--- NOTE | 2017-04-01 08:25 | NUR ---
OCCUPATIONAL THERAPY CO-SIGN I approve of the Occupational Therapy notes written above. ZOË DOS SANTOS OTR/Paula
--- NOTE | 2017-04-01 08:35 | NUR ---
PT AWAKE. ASSESSMENT COMPLETE. PER PT PERCOCET EFFECTIVE IN REDUCING PAIN TO 5/10. ADMINISTERED PRN FLEXERIL PER PT REQUEST FOR RIGHT HIP DISCOMFORT.
--- NOTE | 2017-04-01 09:06 | NUR ---
PATIENT SEEN 1:1 FOR 16 MINUTES THIS DATE. PATIENT IDENTIFIED BY NAME AND DATE OF . PATIENT IN BED WITH CPM MACHINE IN PLACE LEFT LE. PATIENT REPORTS 7/10 PAIN LEFT KNEE WITH PATIENT REPORTING MEDICATED WITH PAIN PILL IN AM. COMPLETED EDUCATION USE AE FOR INCREASE INDEPENDENCE AND SAFETY ADL TASKS INCLUDED EDUCATION USE SHOE HORN, LONG HANDLED SPONGE, HOUSING ASSISTANT, AND SOCK AID. PATIENT DONNED RIGHT SOCK IN SUPINE USE SOCK AID KS AFTER EDUCATION. PATIENT REPORTS THAT SHE HAS A TUB SEAT THAT SHE IS BORROWING FROM A FRIEND FOR AT HOME USE. JAYDE PACEER LUIS
--- NOTE | 2017-04-01 09:26 | NUR ---
PHYSICAL THERAPY Mrs Tobin seen this AM 1:1 for her physical therapy session, Pt supine in bed. Said that she is going home now with she is D/C from the hospital. With pt in supine working on left LE act quads sets pushing down into the and trying to get her heel of the bad at this same time and is still weak with act quad sets and act LAQ's. In sitting marching and ankle pumps. All transfers were supervision X 1, up on wheeled walker standing balance. Followed by gait 245' X 2, one sitting rest and CG to just supervision x 1, no LOB with this. Pt back supine in bed working on quad set strengthening. MICHAEL ECKERT MANAGER CONSUMER.
--- NOTE | 2017-04-01 09:30 | NUR ---
PT TOLERATING CPM MACHINE AT 75 DEGREES. STATES PRIOR MEDICATION EFFECTIVE.
--- NOTE | 2017-04-01 11:11 | NUR ---
PT GOING HOME TODAY. DOES NOT WANT [facility]. REQUESTS OUTPT P.T. DR WELLINGTON'S OFFICE NOTIFIED AND TO FAX SCRIPT TO ME. PT REQUESTS WHEELED WALKER AND CPM MACHINE. DOESNT CARE WHO SUPPLIES THESE LONG THEY ACCEPT [employer]. [facility] AND [facility] DOES ACCEPT [employer]. SCRIPT AND PAPERWORK FAXED. SPOKE WITH NICOLE THERE. SHE WILL CALL ME IF ANYTHING ELSE NEEDED. AWARE PT TO BE DC TODAY.
[2017-04-01] MEDS ORDERED: ENOXAPARIN40 MG/0.2 SC (11:26)
[2017-04-01] MEDS ORDERED: WALKER (11:34)
[2017-04-01] MEDS ORDERED: PERCOCET 5-3251 EACH PO (11:34)
[2017-04-01 12:00] VITALS: BP 122/74
--- NOTE | 2017-04-01 12:03 | NUR ---
PT GIVEN DR WELLINGTON'S SCRIPT FOR OUTPT P.T. ALOS INFORMED THAT I SPOKE WITH VESTA AT [facility] IN [place] AND INSURANCE [employer]OVERS COST OF THE [employer]. PT WILL GIVE THESE HERSELF AT HOME. [facility] WILL DELIVER WALKER TO HER ROOM SOMETIME TODAY BUT THEY WERE NOT ABLE TO GIVE ME A TIME FRAME. PT AWARE.
--- NOTE | 2017-04-01 12:26 | NUR ---
ADMINISTERED PO PERCOCET PER PT REQUEST FOR LEFT KNEE PAIN RATED 6/10. WILL MONITOR FOR EFFECTIVENESS.
--- NOTE | 2017-04-01 15:55 | NUR ---
Discharge instructions reviewed with patient/family. Patient receptive and verbalizes understanding. Follow-up care arranged. Written instructions given to patient/family. SERENE ROSA
--- NOTE | 2017-04-02 07:55 | NUR ---
PHYSICAL THERAPY CO-SIGN I approve of the Phyical Therapy notes written above. JOSE RIOS PT
== END 2017-04-01 17:00 | disposition home or self-care (01) | DRG 470 ==
LOC: SDC 03:00 → 4E 07:53 → SDC 08:00 → 4E 04-01 17:00
PROVIDERS: Internal Medicine; Orthopaedic Surgery; ADMIT Internal Medicine
PROC: 0SRD0J9 Replacement of Left Knee Joint with Synthetic Substitute, Cemented, Open Approach (ICD-10-PCS; principal; 2017-03-26)
DX: M17.12 Unilateral primary osteoarthritis, left knee (principal); E44.0 Moderate protein-calorie malnutrition; I10 Essential (primary) hypertension; E66.09 Other obesity due to excess calories; F17.210 Nicotine dependence, cigarettes, uncomplicated; Z68.33 Body mass index [BMI] 33.0-33.9, adult; Z72.89 Other problems related to lifestyle; Z84.89 Family history of other specified conditions; Z82.49 Family history of ischemic heart disease and other diseases of the circulatory system; Z88.0 Allergy status to penicillin; Z79.899 Other long term (current) drug therapy; Z71.6 Tobacco abuse counseling

== ENCOUNTER → 2017-04-22 | Outpatient (CLI) | payer OTHER ==
[~2017-04-22] MED LIST changes: +ENOXAPARIN40 MG/0.2 SC; +PERCOCET 5-3251 EACH PO; +ULTRAM50 MG PO; +WALKER
== END | disposition home or self-care (01) ==
LOC: ORTHO 03:44
DX: M17.12 Unilateral primary osteoarthritis, left knee (principal); Z96.652 Presence of left artificial knee joint

== ENCOUNTER → 2017-06-12 | Day surgery (SDC) | payer OTHER ==
[2017-06-12 10:49] LABS: ACT PARTIAL THROMBO TIME 21.5 SECONDS (20.8-31.5); INTERNATIONAL NORM RATIO 0.9 (2.0-3.5)
== END | disposition home or self-care (01) ==
LOC: SDC 01:00
PROVIDERS: Orthopaedic Surgery
DX: M70.61 Trochanteric bursitis, right hip (principal); M16.11 Unilateral primary osteoarthritis, right hip; F17.210 Nicotine dependence, cigarettes, uncomplicated; Z98.890 Other specified postprocedural states; K21.9 Gastro-esophageal reflux disease without esophagitis; I10 Essential (primary) hypertension; Z88.8 Allergy status to other drugs, medicaments and biological substances; Z79.899 Other long term (current) drug therapy; Z88.0 Allergy status to penicillin; Z68.35 Body mass index [BMI] 35.0-35.9, adult

== ENCOUNTER → 2019-07-20 | Outpatient (CLI) | payer OTHER ==
[2019-07-20 11:46] LABS: BASO % 0.8 % (0.0-1.0); EOS # 0.1 10*3/uL (0.0-0.4); EOS % 1.2 % (1.0-4.0); HEMATOCRIT 40.7 % (37.0-47.0); LYMPH # 1.8 10*3/uL (1.3-4.4); LYMPH % 33.7 % (27.0-41.0); MEAN CELL VOLUME 99.3 fl (81.0-99.0); MEAN CORPUSCULAR HGB 34.1 pg (27.0-31.0); MEAN CORPUSCULAR HGB CONC 34.4 g/dl (33.0-37.0); MEAN PLATELET VOLUME 9.7 fl (9.6-12.3); MONO # 0.4 10*3/uL (0.1-1.0); MONO % 8.3 % (3.0-9.0); NEUT # 2.9 10*3/uL (2.3-7.9); NEUT % 55.6 % (47.0-73.0); PLATELET COUNT AUTOMATED 246 10*3/uL (130-400); RED CELL DISTRI WIDTH 12.5 % (0-14.5); RETICULOCYTE % 2.14 % (0.50-2.50); WHITE BLOOD COUNT 5.2 10*3/uL (4.8-10.8)
[2019-07-20 12:17] LABS: ALBUMIN 3.4 gm/dl (3.1-4.5); BUN 18 mg/dl (7-24); CHLORIDE 111 mmol/L (98-107); POTASSIUM 3.6 mmol/L (3.5-5.1); SODIUM 141 mmol/L (136-145)
[2019-07-20 12:30] LABS: ALKALINE PHOSPHATASE 152 U/L (45-117); CHOLESTEROL 234 mg/dL (<200); CREATININE 0.72 mg/dL (0.55-1.02); GAMMA GLUTAMYL TRANSPEPTIDASE 234 U/L (5-55); HDL CHOLESTEROL 52 mg/dl (40-60); IRON 106 ug/dL (50-170); LDL CHOLESTEROL 141 mg/dL (9-159); SGOT/AST 37 IU/L (3-35); SGPT/ALT 55 U/L (12-78); TOTAL IRON BINDING CAPACITY 409 ug/dl (250-450); TOTAL PROTEIN 7.2 gm/dL (6.4-8.2); TRIGLYCERIDES 206 mg/dl (<150); URIC ACID 6.2 mg/dL (2.6-6.0); VLDL CHOLESTEROL 41 mg/dL (6-40)
[2019-07-20 13:58] LABS: BILIRUBIN NEGATIVE (NEGATIVE); BLOOD NEGATIVE (NEGATIVE); CLARITY SL CLOUDY (CLEAR); COLOR YELLOW (YELLOW); GLUCOSE NEGATIVE (NEGATIVE); KETONE NEGATIVE (NEGATIVE); LEUKO ESTERASE NEGATIVE (NEGATIVE); NITRITE NEGATIVE (NEGATIVE); UROBILINOGEN 0.2 E.U./dl (0.2-1.0)
[2019-07-20 14:00] LABS: BACTERIA 1+; YEAST TRACE
[2019-07-20 15:18] LABS: FERRITIN 38.5 ng/mL (10.0-291.0); VITAMIN D, 25-HYDROXY 24.4 ng/mL (30-100)
[2019-07-21 08:10] LABS: RHEUMATOID ARTHRITIS FACTOR <10.0 IU/mL (0.0-13.9)
[2019-07-21 13:07] LABS: ANTI-DSDNA ANTIBODIES 096339 1 IU/mL (0-9)
== END | disposition home or self-care (01) ==
LOC: LAB 11:21
PROVIDERS: Family Medicine
DX: R79.89 Other specified abnormal findings of blood chemistry (principal); R53.83 Other fatigue; E78.5 Hyperlipidemia, unspecified; R74.8 Abnormal levels of other serum enzymes; E55.9 Vitamin D deficiency, unspecified

== ENCOUNTER 2019-10-27 13:04 | Inpatient (IN) | payer OTHER ==
[2019-10-27] VITALS (8 sets, daily range): BP systolic 129–175; BP diastolic 60–89
[~2019-10-27] VITALS: Ht 162.6 cm; Wt 97.6 kg
[~2019-10-27 13:04] MED LIST changes: -DICLOFENAC SOD75 MG PO; -METOPROLOL SUCC50 M1 PO; -VITAMIN D325 MCG PO; -XARE20MG PO
--- NOTE | 2019-10-27 14:47 | NUR ---
MARCIAL MENDEZ IN ROOM DISCUSSING PLAN OF CARE WITH PATIENT.
--- NOTE | 2019-10-27 15:30 | NUR ---
A 54, admitted to , under the services of LAYO Hammond DO with a diagnosis of NEW ONSET A.FIB. Chief complaint is PATIENT WAS HERE FOR PRE-OP TESTING AND FOUND TO BE A.FIB ON EKG AND SENT TO ER.. Patient arrived via bed from ER. Monitor applied. Initial assessment completed. Vital signs taken and recorded. LAYO HAMMOND DO notified of admission to the unit. Orders received. See assessment for past medical history, medications and allergies. Patient and/or family oriented to unit. [facility] visitation policy reviewed. Clothing/patient valuable form completed. JOSE MURRAY
[2019-10-27] MEDS ORDERED: DICLOFENAC SOD75 MG PO (16:06)
[2019-10-27] MEDS ORDERED: VITAMIN D325 MCG PO (16:07)
[2019-10-27] MEDS ORDERED: CYCLOBENZAPRINE10 MG PO (16:09)
--- NOTE | 2019-10-27 18:15 | NUR ---
NOTIFIED OF PATIENT;S HEARTRATE GOING UP INTO 130'S - CONVERTING BACK TO A FIB. ONE TIME DOSE OF IV DIG ORDERED.
--- NOTE | 2019-10-27 18:31 | NUR ---
DID NOT GIVE THE IV DIGOXIN AT THIS TIME DUE TO PATIENT'S HEARTRATE IS BACK IN NSR IN THE 60'S-70'S. WILL CONTINUE TO MONITOR
--- NOTE | 2019-10-27 20:52 | NUR ---
DR PUENTE NOTIFIED PT IS REQUESTING HS MEDICATIONS. STATES OK.
--- NOTE | 2019-10-27 22:00 | NUR ---
RT HIP PAIN RATED 6/10, NORCO PROVIDED PER PRN ORDER. PT REPOSITIONED SELF IN BED. CHRONIC PAIN PER PT.
--- NOTE | 2019-10-27 23:00 | NUR ---
PATIENT RESTING; NORCO APPEARS EFFECTIVE FOR PAIN. RESPS EASY AND REGULAR ON ROOM AIR. CALL LIGHT IN REACH.
[2019-10-28] VITALS (7 sets, daily range): BP systolic 118–156; BP diastolic 73–102
--- NOTE | 2019-10-28 00:01 | NUR ---
HR 55 CARDIZEM GTT DECREASED TO 5 MG/HR PER TITRATE ORDER
--- NOTE | 2019-10-28 04:29 | NUR ---
TYLENOL GIVEN PER PT REQUEST FOR C.O HEADACHE.
--- NOTE | 2019-10-28 05:39 | NUR ---
DR PUENTE AWARE PATIENT IS CONVERTING IN & OUT OF AFIB AND HAD A STRIP WITH BIGEMINY. CARDIO ALREADY CONSULTED. STATES TO WATCH UNTIL CARDIO ROUNDS AND IF ANYTHING CHANGES WE WILL GO FROM THERE.
[2019-10-28 06:24] LABS: BASO % 0.6 % (0.0-1.0); EOS # 0.1 10*3/uL (0.0-0.4); EOS % 2.1 % (1.0-4.0); HEMATOCRIT 41.9 % (37.0-47.0); LYMPH # 1.9 10*3/uL (1.3-4.4); LYMPH % 40.3 % (27.0-41.0); MEAN CELL VOLUME 99.8 fl (81.0-99.0); MEAN CORPUSCULAR HGB 34.3 pg (27.0-31.0); MEAN CORPUSCULAR HGB CONC 34.4 g/dl (33.0-37.0); MEAN PLATELET VOLUME 10.4 fl (9.6-12.3); MONO # 0.5 10*3/uL (0.1-1.0); MONO % 10.7 % (3.0-9.0); NEUT # 2.1 10*3/uL (2.3-7.9); NEUT % 46.1 % (47.0-73.0); PLATELET COUNT AUTOMATED 229 10*3/uL (130-400); RED CELL DISTRI WIDTH 11.6 % (0-14.5); WHITE BLOOD COUNT 4.7 10*3/uL (4.8-10.8)
[2019-10-28 06:50] LABS: ALBUMIN 3.3 gm/dl (3.1-4.5); BUN 15 mg/dl (7-24); CHLORIDE 106 mmol/L (98-107); CHOLESTEROL 291 mg/dL (<200); CREATININE 0.71 mg/dL (0.55-1.02); POTASSIUM 3.8 mmol/L (3.5-5.1); SGOT/AST 63 IU/L (3-35); SGPT/ALT 105 U/L (12-78); SODIUM 139 mmol/L (136-145); TOTAL PROTEIN 7.2 gm/dL (6.4-8.2); TRIGLYCERIDES 340 mg/dl (<150); VLDL CHOLESTEROL 68 mg/dL (6-40)
[2019-10-28 06:56] LABS: ALKALINE PHOSPHATASE 155 U/L (45-117); FREE T4 1.31 ng/dl (0.76-1.46); HDL CHOLESTEROL 51 mg/dl (40-60); LDL CHOLESTEROL 172 mg/dL (9-159)
[2019-10-28 08:06] LABS: VITAMIN D, 25-HYDROXY 30.4 ng/mL (30-100)
--- NOTE | 2019-10-28 08:17 | NUR ---
PATIENT MEDICATED WITH NORCO PER DRS ORDERS FOR COMPLAINTS OF SEVERE HEADACHE AND ALSO PAIN TO HER RIGHT HIP. RN WILL MONITOR FOR EFFECTIVENESS
--- NOTE | 2019-10-28 09:17 | NUR ---
PATIENT STATES THAT EARLIER PAIN MEDICATION HAS LESSENED HER HEADACHE. RN WILL CONTNIUE TO MONITOR
--- NOTE | 2019-10-28 12:09 | NUR ---
Fence Post Driver in to talk to patient. Patient states lives at home with . There are 8 steps in the home. Physician: aleksandra godfrey [facility]acy: [facility] Home health services: none Patient's level of ADLs: INDEPENDENT Patient has working utilities: all working DME: none Follow-up physician's appointment after d/c: will be made by hospitalist nurse director upon discharge Does patient want to access PORTAL?: no Discharge plan discussed with patient, she state she lives at home with , she states she is independent in adls and ambulaton, works, drives, she states she will return home when medically stable and denies any home needs, case management will follow. TERESA WILSON
--- NOTE | 2019-10-28 14:00 | NUR ---
PATIENT REQUESTING TO CHANGE PHARMACY TO [facility], PHARMACY CHANGED AND NOW NEW MEDICATIONS WILL BE SENT TO [facility],
[2019-10-28] MEDS ORDERED: METOPROLOL SUCC50 M1 PO (14:34)
[2019-10-28] MEDS ORDERED: XARE20MG PO (14:34)
--- NOTE | 2019-10-28 14:43 | NUR ---
PATIENT OFF TO ULTRASOUND AT THIS TIME.
--- NOTE | 2019-10-28 15:00 | NUR ---
BACK FROM ULTRASOUND AT THIS TIME. STABLE VITALS
--- NOTE | 2019-10-28 15:14 | NUR ---
IV discontinued. Site asymptomatic. Pressure applied. Sterile dressing applied. MARZENA GAY
--- NOTE | 2019-10-28 15:16 | NUR ---
Discharge instructions reviewed with patient/family. Patient receptive and verbalizes understanding. Follow-up care arranged. Written instructions given to patient/family. MARZENA GAY
--- NOTE | 2019-10-28 15:31 | NUR ---
PATIENT OFF THE FLOOR AT THIS TIME. ALL BELONGINGS SENT WITH PATIENT
[2019-10-29 07:06] LABS: HEP B CORE AB, IGM Negative (Negative); HEPATITIS B SURFACE AG Negative (Negative); HEPATITIS C VIRUS ANTIBODY <0.1 s/co (0.0-0.9)
== END 2019-10-28 15:31 | disposition home or self-care (01) | DRG 201 ==
LOC: ED 13:04 → EDHOLD 14:28 → 4E 14:28
PROVIDERS: Registered Nurse; ADMIT Internal Medicine
DX: I48.91 Unspecified atrial fibrillation (principal); I10 Essential (primary) hypertension; K21.9 Gastro-esophageal reflux disease without esophagitis; F41.1 Generalized anxiety disorder; R73.9 Hyperglycemia, unspecified; R74.8 Abnormal levels of other serum enzymes; F10.10 Alcohol abuse, uncomplicated; R74.0 Nonspecific elevation of levels of transaminase and lactic acid dehydrogenase [LDH]; E66.09 Other obesity due to excess calories; I25.10 Atherosclerotic heart disease of native coronary artery without angina pectoris; E44.0 Moderate protein-calorie malnutrition; M19.90 Unspecified osteoarthritis, unspecified site; Z82.49 Family history of ischemic heart disease and other diseases of the circulatory system; Z87.891 Personal history of nicotine dependence; Z88.0 Allergy status to penicillin; Z68.34 Body mass index [BMI] 34.0-34.9, adult

== ENCOUNTER → 2019-10-27 | Outpatient (CLI) | payer OTHER ==
[~2019-10-27] MED LIST changes: +DICLOFENAC SOD75 MG PO; +METOPROLOL SUCC50 M1 PO; +VITAMIN D325 MCG PO; +XARE20MG PO
[2019-10-27 12:32] LABS: BASO % 0.5 % (0.0-1.0); EOS # 0.1 10*3/uL (0.0-0.4); EOS % 1.7 % (1.0-4.0); HEMATOCRIT 39.5 % (37.0-47.0); LYMPH # 1.4 10*3/uL (1.3-4.4); LYMPH % 32.9 % (27.0-41.0); MEAN CELL VOLUME 98.5 fl (81.0-99.0); MEAN CORPUSCULAR HGB 34.7 pg (27.0-31.0); MEAN CORPUSCULAR HGB CONC 35.2 g/dl (33.0-37.0); MEAN PLATELET VOLUME 10.4 fl (9.6-12.3); MONO # 0.5 10*3/uL (0.1-1.0); MONO % 10.6 % (3.0-9.0); NEUT # 2.3 10*3/uL (2.3-7.9); NEUT % 54.1 % (47.0-73.0); PLATELET COUNT AUTOMATED 236 10*3/uL (130-400); RED BLOOD COUNT 4.01 10*6/uL (4.10-5.10); RED CELL DISTRI WIDTH 11.5 % (0-14.5); WHITE BLOOD COUNT 4.2 10*3/uL (4.8-10.8)
[2019-10-27 12:48] LABS: BILIRUBIN NEGATIVE (NEGATIVE); BLOOD NEGATIVE (NEGATIVE); CLARITY SL CLOUDY (CLEAR); COLOR YELLOW (YELLOW); GLUCOSE NEGATIVE (NEGATIVE); KETONE NEGATIVE (NEGATIVE); LEUKO ESTERASE NEGATIVE (NEGATIVE); NITRITE NEGATIVE (NEGATIVE); PH 6.5 (5.0-9.0); SPECIFIC GRAVITY 1.005 (1.005-1.030); UROBILINOGEN 0.2 E.U./dl (0.2-1.0)
[2019-10-27 13:00] LABS: ALBUMIN 3.3 gm/dl (3.1-4.5); ALKALINE PHOSPHATASE 163 U/L (45-117); BUN 19 mg/dl (7-24); CHLORIDE 106 mmol/L (98-107); CREATININE 0.84 mg/dL (0.55-1.02); SGOT/AST 56 IU/L (3-35); SGPT/ALT 102 U/L (12-78); SODIUM 137 mmol/L (136-145); TOTAL PROTEIN 7.2 gm/dL (6.4-8.2)
[2019-10-27 13:01] LABS: ACT PARTIAL THROMBO TIME 24.3 SECONDS (20.0-32.1); INTERNATIONAL NORM RATIO 0.9 (2.0-3.5)
[2019-10-27 14:14] LABS: BACTERIA 1+
[2019-10-27 14:15] LABS: YEAST TRACE
== END | disposition home or self-care (01) ==
LOC: LAB 11:38
PROVIDERS: Orthopaedic Surgery
DX: J43.9 Emphysema, unspecified (principal); I48.91 Unspecified atrial fibrillation; I10 Essential (primary) hypertension; E78.00 Pure hypercholesterolemia, unspecified; M19.90 Unspecified osteoarthritis, unspecified site; Z79.899 Other long term (current) drug therapy

== ENCOUNTER 2020-06-13 03:14 | Inpatient (IN) | payer OTHER ==
[2020-06-13] VITALS (8 sets, daily range): BP systolic 110–222; BP diastolic 57–107
[~2020-06-13] VITALS: Ht 163 cm; Wt 99.9 kg
[~2020-06-13 03:14] MED LIST changes: +DICLOFENAC SOD75 MG PO; +METOPROLOL SUCC50 M1 PO; +VITAMIN D325 MCG PO; +XARE20MG PO
[2020-06-13 03:43] LABS: BASO % 0.5 % (0.0-1.0); EOS # 0.1 10*3/uL (0.0-0.4); EOS % 1.5 % (1.0-4.0); HEMATOCRIT 38.6 % (37.0-47.0); LYMPH # 1.6 10*3/uL (1.3-4.4); LYMPH % 26.5 % (27.0-41.0); MEAN CELL VOLUME 99.2 fl (81.0-99.0); MEAN CORPUSCULAR HGB 30.8 pg (27.0-31.0); MEAN CORPUSCULAR HGB CONC 31.1 g/dl (33.0-37.0); MEAN PLATELET VOLUME 10.1 fl (9.6-12.3); MONO # 0.6 10*3/uL (0.1-1.0); MONO % 9.9 % (3.0-9.0); NEUT # 3.8 10*3/uL (2.3-7.9); NEUT % 61.3 % (47.0-73.0); PLATELET COUNT AUTOMATED 256 10*3/uL (130-400); RED BLOOD COUNT 3.89 10*6/uL (4.10-5.10); RED CELL DISTRI WIDTH 13.2 % (0-14.5); WHITE BLOOD COUNT 6.2 10*3/uL (4.8-10.8)
--- NOTE | 2020-06-13 03:55 | NUR ---
PT REFUSED EKG AT THIS TIME
--- NOTE | 2020-06-13 04:00 | NUR ---
Pt placed on 15L HFNC - Spo2 97%
[2020-06-13 04:03] LABS: ALBUMIN 3.5 gm/dl (3.1-4.5); ALKALINE PHOSPHATASE 232 U/L (45-117); BUN 30 mg/dl (7-24); CHLORIDE 112 mmol/L (98-107); CREATININE 0.74 mg/dL (0.55-1.02); POTASSIUM 3.9 mmol/L (3.5-5.1); SGOT/AST 259 IU/L (3-35); SODIUM 143 mmol/L (136-145); TOTAL PROTEIN 7.9 gm/dL (6.4-8.2)
[2020-06-13 04:04] LABS: SGPT/ALT 328 U/L (12-78)
[2020-06-13 04:16] LABS: TROPONIN I < 0.015 ng/ml (<0.045)
--- NOTE | 2020-06-13 04:21 | NUR ---
PT BROUGHT IN PHONE TECHNICIAN SUBMARINE CABLE EQUIPMENT WAS GIVEN TO PT
--- NOTE | 2020-06-13 05:26 | NUR ---
PT PROVIDED ICE CHIPS/WATER
--- NOTE | 2020-06-13 05:26 | NUR ---
PT UP ON BEDSIDE COMMODE NO ACUTE DISTRESS NOTED UPON THIS RN EXITING ROOM CALL LIGHT WITHIN REACH
--- NOTE | 2020-06-13 05:26 | NUR ---
[address]
--- NOTE | 2020-06-13 05:32 | NUR ---
USHA D/C PER DR RAMIREZ
--- NOTE | 2020-06-13 06:32 | NUR ---
PT RESTING IN BED WITH EYES CLOSED, CALL LIGHT WITHIN REACH, NO ACUTE DISTRESS NOTED UPON THIS RN EXITING THE ROOM
--- NOTE | 2020-06-13 09:27 | NUR ---
THE PATIENT WAS GIVEN COFFEE PER HER REQUEST. I CALLED THE [facility] TO SEE WHEN HER BREAKFAST WILL ARRIVE. SHE ALSO WANTS TO KNOW WHEN HER DOCTOR WILL BE IN TO SEE HER. I EXPLAINED THAT THEY WILL MAKE ROUNDS LATER THIS AM.
[2020-06-13 11:33] LABS: ABG BASE EXCESS -0.2 mmol/L (-2.0-2.0); ARTERIAL BLOOD GAS PH 7.378 (7.35-7.45)
--- NOTE | 2020-06-13 15:30 | NUR ---
A 54, admitted to , under the services of LAYO Hammond DO with a diagnosis of SHANNAN, SUSPECT COVID 19, ELEVATED LFT'S. Chief complaint is SHORTNESS OF BREATH. Patient arrived via stretcher from ER. Monitor applied. Initial assessment completed. Vital signs taken and recorded. LAYO HAMMOND DO notified of admission to the unit. Orders received. See assessment for past medical history, medications and allergies. Patient and/or family oriented to unit. [address] visitation policy reviewed. Clothing/patient valuable form completed. ELVIRA SILVA
--- NOTE | 2020-06-13 20:00 | NUR ---
IN TO ASSESS PATIENT. PATIENT LAYING IN BED. NO DISTRES NOTED. BREATHING IS EASY AND REGULAR. PATIENT ON 2L OF O2 STATES SHE WOULD LIKE TO WEAR IN FOR THE NIGHT, BUT THAT SHE DOES NOT WEAR OXYGEN AT HOME. PATIENT ONLY COMPLAINTS OF A DRY HACKY COUGH. DENIES ANY CHEST PAIN, JUST COMPLAINS OF TIGHTNESS AT TIMES FROM COUGHING. CALL LIGHT WITHIN REACH, WILL MONITOR
[2020-06-14] VITALS: BP 156/76
--- NOTE | 2020-06-14 00:30 | NUR ---
PATIENT ON NOCTURNAL PULSE OX PER ORDER
--- NOTE | 2020-06-14 02:46 | NUR ---
24 HR chart check completed.
--- NOTE | 2020-06-14 04:15 | NUR ---
PATIENT AWAKE AT THIS TIME. URINES COLLECTED. DENIES ANY NEEDS AT THIS TIME. CALL LIGHT WTIHIN REACH, WILL MONITOR
[2020-06-14 06:07] LABS: ALBUMIN 3.4 gm/dl (3.1-4.5); ALKALINE PHOSPHATASE 185 U/L (45-117); CHLORIDE 107 mmol/L (98-107); CHOLESTEROL 229 mg/dL (<200); CPK 50 U/L (26-192); CREATININE 0.67 mg/dL (0.55-1.02); HDL CHOLESTEROL 76 mg/dl (40-60); LDH 195 U/L (84-246); LDL CHOLESTEROL 128 mg/dL (9-159); POTASSIUM 3.9 mmol/L (3.5-5.1); SGOT/AST 71 IU/L (3-35); SGPT/ALT 224 U/L (12-78); SODIUM 138 mmol/L (136-145); TOTAL PROTEIN 7.7 gm/dL (6.4-8.2); TRIGLYCERIDES 126 mg/dl (<150); VLDL CHOLESTEROL 25 mg/dL (6-40)
[2020-06-14 06:07] LABS: HEP B CORE AB, IGM Negative (Negative); HEPATITIS B SURFACE AG Negative (Negative); HEPATITIS C VIRUS ANTIBODY <0.1 s/co (0.0-0.9)
--- NOTE | 2020-06-14 06:07 | NUR ---
DR. SHER NOTIFIED OF LACTIC ACID OF 2.1. NO NEW ORDERS
[2020-06-14 06:08] LABS: BUN 17 mg/dl (7-24)
[2020-06-14 06:09] LABS: BASO % 0.1 % (0.0-1.0); HEMATOCRIT 36.7 % (37.0-47.0); LYMPH # 1.6 10*3/uL (1.3-4.4); LYMPH % 13.9 % (27.0-41.0); MEAN CELL VOLUME 98.7 fl (81.0-99.0); MEAN CORPUSCULAR HGB 31.5 pg (27.0-31.0); MEAN CORPUSCULAR HGB CONC 31.9 g/dl (33.0-37.0); MEAN PLATELET VOLUME 10.7 fl (9.6-12.3); MONO # 0.9 10*3/uL (0.1-1.0); MONO % 7.5 % (3.0-9.0); NEUT # 8.8 10*3/uL (2.3-7.9); NEUT % 77.9 % (47.0-73.0); PLATELET COUNT AUTOMATED 292 10*3/uL (130-400); RED BLOOD COUNT 3.72 10*6/uL (4.10-5.10); WHITE BLOOD COUNT 11.3 10*3/uL (4.8-10.8)
[2020-06-14 08:00] VITALS: BP 154/83
[2020-06-14 08:11] LABS: FERRITIN 24.7 ng/mL (10.0-291.0); VITAMIN D, 25-HYDROXY 24.2 ng/mL (30-100)
--- NOTE | 2020-06-14 08:48 | NUR ---
Attempted to reach patient via phone with no success. Will try again at a later time.
--- NOTE | 2020-06-14 08:50 | NUR ---
TYLENOL GIVEN PER PRN ORDER FOR C/O GENERALIZED DISCOMFORT. RATES PAIN/DISCOMFORT 5/10. WILL MONITOR EFFECTIVENESS.
--- NOTE | 2020-06-14 08:51 | NUR ---
XANAX GIVEN PER PRN ORDER FOR C/O ANXIETY. WILL MONITOR EFFECTIVENESS.
--- NOTE | 2020-06-14 09:51 | NUR ---
EARLIER TYLENOL AND XANAX EFFECTIVE PER PT.
[2020-06-14] MEDS ORDERED: DECADRON6 M1 PO (11:35)
[2020-06-14 12:00] VITALS: BP 146/72
--- NOTE | 2020-06-14 13:50 | NUR ---
Discharge instructions reviewed with patient/family. Patient receptive and verbalizes understanding. Follow-up care arranged. Written instructions given to patient/family. FRANCESCA VELAZQUEZ.
== END 2020-06-14 13:50 | disposition home or self-care (01) | DRG 720 ==
LOC: ED 03:14 → 4E 06:13 → EDHOLD 06:13 → 4E 14:32
PROVIDERS: Internal Medicine; Student in an Organized Health Care Education/Training Program; ADMIT Internal Medicine; ATTEND Internal Medicine
PROC: 5A0935A Assistance with Respiratory Ventilation, Less than 24 Consecutive Hours, High Flow/Velocity Cannula (ICD-10-PCS; principal; 2020-06-13)
DX: A41.9 Sepsis, unspecified organism (principal); R65.20 Severe sepsis without septic shock; G47.30 Sleep apnea, unspecified; E87.3 Alkalosis; R06.03 Acute respiratory distress; Z20.822 Contact with and (suspected) exposure to COVID-19; I48.0 Paroxysmal atrial fibrillation; E44.0 Moderate protein-calorie malnutrition; K21.9 Gastro-esophageal reflux disease without esophagitis; F41.1 Generalized anxiety disorder; F10.10 Alcohol abuse, uncomplicated; E87.8 Other disorders of electrolyte and fluid balance, not elsewhere classified; J90 Pleural effusion, not elsewhere classified; I10 Essential (primary) hypertension; F17.210 Nicotine dependence, cigarettes, uncomplicated; R74.8 Abnormal levels of other serum enzymes; R74.01 Elevation of levels of liver transaminase levels; R73.9 Hyperglycemia, unspecified; E66.9 Obesity, unspecified; R60.9 Edema, unspecified; Z71.6 Tobacco abuse counseling; Z88.0 Allergy status to penicillin; Z98.891 History of uterine scar from previous surgery; Z98.51 Tubal ligation status; Z82.49 Family history of ischemic heart disease and other diseases of the circulatory system; Z80.8 Family history of malignant neoplasm of other organs or systems; Z83.42 Family history of familial hypercholesterolemia; Z79.899 Other long term (current) drug therapy; Z68.37 Body mass index [BMI] 37.0-37.9, adult; J18.9 Pneumonia, unspecified organism

== ENCOUNTER → 2020-09-30 | Outpatient (CLI) | payer OTHER ==
[~2020-09-30] MED LIST changes: +DECADRON6 M1 PO
[2020-09-30 10:22] LABS: HEMATOCRIT 37.2 % (37.0-47.0); MEAN CELL VOLUME 92.8 fl (81.0-99.0); MEAN CORPUSCULAR HGB 30.7 pg (27.0-31.0); MEAN CORPUSCULAR HGB CONC 33.1 g/dl (33.0-37.0); MEAN PLATELET VOLUME 9.9 fl (9.6-12.3); PLATELET COUNT AUTOMATED 248 10*3/uL (130-400); RED BLOOD COUNT 4.01 10*6/uL (4.10-5.10); RED CELL DISTRI WIDTH 13.7 % (0-14.5); RETICULOCYTE % 1.76 % (0.50-2.50); WHITE BLOOD COUNT 6.1 10*3/uL (4.8-10.8)
[2020-09-30 10:27] LABS: BILIRUBIN Negative (Negative); BLOOD Negative (Negative); CLARITY Clear (Clear); COLOR Yellow (Yellow); GLUCOSE Negative (Negative); KETONE Negative (Negative); LEUKO ESTERASE Negative (Negative); NITRITE Negative (Negative); SPECIFIC GRAVITY <= 1.005 (1.001-1.030); UROBILINOGEN 0.2 E.U./dl (0.0-1.0)
[2020-09-30 10:48] LABS: ATYPICAL LYMPHS 2 % (0-0); PLATELET SUFFICIENCY NORMAL (NORMAL); POLYCHROMASIA SLIGHT; TOTAL CELLS COUNTED 100 #CELLS
[2020-09-30 10:49] LABS: ALBUMIN 2.8 gm/dl (3.1-4.5); ALKALINE PHOSPHATASE 211 U/L (45-117); BUN 11 mg/dl (7-24); CHLORIDE 105 mmol/L (98-107); CHOLESTEROL 218 mg/dL (<200); CREATININE 0.57 mg/dL (0.55-1.02); GAMMA GLUTAMYL TRANSPEPTIDASE 400 U/L (5-55); HDL CHOLESTEROL 42 mg/dl (40-60); IRON 76 ug/dL (50-170); LDL CHOLESTEROL 116 mg/dL (9-159); POTASSIUM 3.6 mmol/L (3.5-5.1); SGOT/AST 34 IU/L (3-35); SGPT/ALT 39 U/L (12-78); SODIUM 136 mmol/L (136-145); T3 UPTAKE 33 % (31-39); THYROXINE (T4) TOTAL 10.4 ug/dl (4.8-13.9); TOTAL IRON BINDING CAPACITY 317 ug/dl (250-450); TOTAL PROTEIN 7.6 gm/dL (6.4-8.2); TRIGLYCERIDES 302 mg/dl (<150); VLDL CHOLESTEROL 60 mg/dL (6-40)
[2020-09-30 11:09] LABS: WBC 0-2 wbc/hpf (0-5)
[2020-09-30 11:10] LABS: BACTERIA 2+; FERRITIN 138.4 ng/mL (10.0-291.0); VITAMIN D, 25-HYDROXY 51.2 ng/mL (30-100)
[2020-10-01 04:06] LABS: TOTAL PROTEIN, SERUM 6.7 g/dL (6.0-8.5)
[2020-10-01 05:06] LABS: RHEUMATOID ARTHRITIS FACTOR <10.0 IU/mL (0.0-13.9)
[2020-10-02 15:06] LABS: ANTI-DSDNA ANTIBODIES 1 IU/mL (0-9)
[2020-10-03 16:08] LABS: A/G RATIO 0.9 (0.7-1.7); ALBUMIN 3.1 g/dL (2.9-4.4); ALPHA-1-GLOBULIN 0.4 g/dL (0.0-0.4); ALPHA-2-GLOBULIN 1.2 g/dL (0.4-1.0); BETA GLOBULIN 1.3 g/dL (0.7-1.3); GAMMA GLOBULIN 0.8 g/dL (0.4-1.8); GLOBULIN, TOTAL 3.6 g/dL (2.2-3.9); M-SPIKE Not Observed g/dL (Not Observed)
== END | disposition home or self-care (01) ==
LOC: LAB 09:53
PROVIDERS: ATTEND Family Medicine
DX: E78.5 Hyperlipidemia, unspecified (principal); E55.9 Vitamin D deficiency, unspecified; R79.89 Other specified abnormal findings of blood chemistry; R53.83 Other fatigue

== ENCOUNTER → 2020-09-30 | Outpatient (CLI) | payer OTHER | END | disposition home or self-care (01) | LOC: COVID19 10:20 | PROVIDERS: ATTEND Family Medicine | DX: Z20.822 Contact with and (suspected) exposure to COVID-19 (principal) ==